=== PATIENT | male | born 1990 | race Caucasian/White ===

== ENCOUNTER 2019-08-07 19:25 | Emergency (ER) | payer OTHER ==
[~2019-08-07] VITALS: Ht 188 cm; Wt 101.4 kg
[2019-08-07 19:27] VITALS: BP 129/60
[2019-08-07] MEDS ORDERED: ACETAMINOPHEN 500 MG TABLET PO ONE (20:00)
[2019-08-07] MEDS ORDERED: ACETAMINOPHEN 500 MG TABLET ONE (20:22)
== END 2019-08-07 21:06 | disposition home or self-care (01) ==
LOC: ED 20:41
DX: S83.92XA Sprain of unspecified site of left knee, initial encounter (principal); S80.02XA Contusion of left knee, initial encounter; F17.200 Nicotine dependence, unspecified, uncomplicated; W18.30XA Fall on same level, unspecified, initial encounter; Y93.89 Activity, other specified; Y92.009 Unspecified place in unspecified non-institutional (private) residence as the place of occurrence of the external cause; Y99.8 Other external cause status
CPT/HCPCS: 99283